=== PATIENT | male | born 1965 | race Caucasian/White ===

== ENCOUNTER 2022-03-28 16:36 | Outpatient (CLI) | payer OTHER, SELFPAY ==
--- NOTE | ~2022-03-28 | XR_ITS ---
EXAMINATION: XR chest 2V DATE: 03/28/2022 17:06 INDICATION: Upper respiratory infection symptoms, chest pain TECHNIQUE: PA and lateral views of the chest are obtained. COMPARISON: None available FINDINGS: The lungs are free of acute opacities. There is no pleural effusion or pneumothorax. The ca rdiomediastinal silhouette is normal. There is mild thoracic spondylosis. IMPRESSION: 1. No acute cardiopulmonary abnormality. Reviewed, dictated and finalized at location F.
== END 2022-03-28 16:37 | disposition home or self-care (01) ==
LOC: CHSIMG 16:41
PROVIDERS: PCP Family Medicine; Visit Provider Family Medicine
DX: J06.9 Acute upper respiratory infection, unspecified (principal)
CPT/HCPCS: 71046